=== PATIENT | female | born 1980 | race Caucasian/White ===

== ENCOUNTER 2023-03-19 17:39 | Emergency (ER) | payer SELFPAY ==
[~2023-03-19] VITALS: Ht 147 cm; Wt 70.3 kg
[2023-03-19 17:54] VITALS: BP 143/90
--- NOTE | 2023-03-19 17:55 | ED Dyspnea ---
General Stated Complaint: ASTHMA Source of Information: Patient Exam Limitations: No Limitations History of Present Illness Date Seen by Provider: Mar 19, 2023 Time Seen by Provider: 17:53 Initial Comments Patient is a 42-year-old female who presents to ED with shortness of breath and wheezing. Symptoms over the past week. She has a history of asthma. She lives in [place]. Currently in town. She forgot her nebulizer machine. She does have prednisone which she has been taking at a taper dose for the past week. She has been using her rescue albuterol inhaler without much improvement. Continue shortness of breath and wheezing. Denies any chest pain, headache, dizziness, abdominal pain, fever, vomiting, diarrhea, cough. She states her asthma is fairly well controlled. Notable wheezing on exam. No no significant retractions. Allergies and Home Medications Allergies Coded Allergies: No Known Drug Allergies (Unverified , 03/19/23) Patient Home Medication List Home Medication List Reviewed: Yes Albuterol Sulfate (Ventolin Hfa) 1 Puff Puff, 2 PUFF INH Q4H Prescribed by: AISLINN ELKINS on 03/19/232010 Prednisone (Prednisone) 10 Mg Tab.ds.pk, 10 MG PO DAILY Prescribed by: AISLINN ELKINS on 03/19/232009 Review of Systems Review of Systems Constitutional: No chills, No diaphoresis EENTM: No nose pain, No throat pain Respiratory: No cough; short of breath, wheezing Cardiovascular: No chest pain Gastrointestinal: No abdominal pain, No diarrhea, No nausea, No vomiting Genitourinary: No decreased output, No discharge Musculoskeletal: No back pain, No joint pain Skin: No change in color, No change in hair/nails Psychiatric/Neurological: Denies Anxiety, Denies Depressed All Other Systems Reviewed Negative Unless Noted: Yes Physical Exam Vital Signs Vital Signs - First Documented 03/19/23 17:54 Temp 36.6 Pulse 74 Resp 20 B/P (MAP) 143/90 (107) Pulse Ox 95 O2 Delivery Room Air Capillary Refill : Height, Weight, BMI Height: '" Weight: lbs. oz. kg; BMI Method: General Appearance: No Apparent Distress, WD/WN HEENT: PERRL/EOMI, TMs Normal, Normal ENT Inspection, Pharynx Normal Neck: Full Range of Motion, Normal Inspection, Non Tender, Supple Respiratory: No Accessory Muscle Use, Wheezing Cardiovascular: Regular Rate, Rhythm, No Edema, No Gallop, No JVD Gastrointestinal: Normal Bowel Sounds, No Organomegaly, No Pulsatile Mass Extremity: Normal Capillary Refill, Normal Inspection, Normal Range of Motion Neurologic/Psychiatric: Alert, Oriented x3, No Motor/Sensory Deficits, Normal Mood/Affect, director medical writing II-XII Norm as Tested Skin: Normal Color, Warm/Dry Progress/Results/Core Measures Results/Orders My Orders Orders - DAMIR HARRIS Methylprednisolone Sod Succ (Methylpredn (03/19/23 18:00) Albuterol Pre-Mix Nebs (Rt) (Albuterol (03/19/23 18:00) Svn Small Volume Nebulizer (03/19/23 17:51) Albuterol Pre-Mix Nebs (Rt) (Albuterol (03/19/23 18:15) Svn Small Volume Nebulizer (03/19/23 18:05) Ipratropium/Albuterol Inh Soln (Ipratrop (03/19/23 18:08) Albuterol Pre-Mix Nebs (Rt) (Albuterol (03/19/23 18:08) Medications Given in ED Vital Signs/I&O 03/19/23 03/19/23 03/19/23 03/19/23 17:54 18:00 18:15 19:35 Temp 36.6 Pulse 74 92 Resp 20 18 B/P (MAP) 143/90 (107) 137/96 (110) Pulse Ox 95 97 95 93 O2 Delivery Room Air Room Air Room Air Room Air 03/19/23 20:33 Pulse 81 Resp 18 B/P (MAP) 117/81 (93) Pulse Ox 92 O2 Delivery Room Air Departure Communication (PCP) Patient with a history of asthma and allergies who presents to ED for shortness of breath and wheezing. No chest pain. She is from [place]. Differential diagnosis asthma exacerbation, viral syndrome, pneumonia. she does not have her nebulizer machine. Has been using rescue inhaler without much improvement. On arrival no retractions or abdominal breathing. She does have notable wheezing throughout. Vital signs were stable. Patient initially received 1 albuterol nebulizer treatment without much improvement. She was placed on a hour-long treatment. She refused COVID influenza. Refused any chest x-ray. She states she has a history of similar type exacerbations that typically resolved with nebulizer and that is what she is requesting. Patient was observed here in the ED after her hour-long nebulizer treatment. Her oxygen stayed in the mid to lower 90s. She does not want to wait any longer at this time and was wanting to be discharged. She states she has dealt with this in the past and knows when to come back. I did provide her a taper dose of prednisone to start. She has been doing a taper dose over the past week and currently on 20 mg. We will taper from 50 mg. She did receive IM Solu-Medrol here. Recommend taking Zyrtec. If any worsening symptoms return back to ED.Appears to be more allergy induced as she recently traveled to this area from [place]. Impression Primary Impression: Asthma exacerbation Disposition: 01 HOME, SELF-CARE Condition: Stable Departure-Patient Inst. Decision time for Depature: 20:07 Referrals: NO,LOCAL PHYSICIAN (PCP) Primary Care Physician [facility] [place] Patient Instructions: Asthma, Adult (DC) Add. Discharge Instructions: Taper down on prednisone. Albuterol every 4 hours. If any worsening symptoms return back to ED. Scripts Albuterol Sulfate (VENTOLIN HFA) 1 Puff Puff 2 PUFF INH Q4H, #1 EA 1 PUFF = 90 MCG Prov: DAMIR HARRIS 03/19/23 Prednisone (Prednisone) 10 Mg Tab.ds.pk 10 MG PO DAILY, #21 EA Take 6 tabs(60mg)daily,decrease by 1 tab(10MG)daily. Prov: DAMIR HARRIS 03/19/23 DAMIR HARRIS Mar 19, 2023 17:55
[2023-03-19] MEDS ORDERED: methylPREDNISolone INJ 125 MG VIAL IM ONE (18:00)
[2023-03-19] MEDS ORDERED: RT-ALBUTEROL SULF 2.5 MG/3 ML PRE-MIX VIAL INH ONE ×2 (18:00→18:15)
[2023-03-19] MEDS ORDERED: RT-Ipratropium/Albuterol NEB 3 ML VIAL ONE (18:08)
[2023-03-19] MEDS ORDERED: RT-ALBUTEROL SULF 2.5 MG/3 ML PRE-MIX VIAL ONE (18:08)
[2023-03-19] MEDS ORDERED: PRED10TA22 PO (20:10)
[2023-03-19] MEDS ORDERED: RT-ALBUINH INH (20:11)
== END 2023-03-19 20:35 | disposition home or self-care (01) ==
LOC: ER 17:42
DX: J45.901 Unspecified asthma with (acute) exacerbation (principal)
CPT/HCPCS: 94640; 99284